=== PATIENT | male | born 1965 | race Caucasian/White ===

== ENCOUNTER 2020-04-27 02:08 | Outpatient (CLI) | payer OTHER, SELFPAY ==
[2020-04-27 18:09] LABS: SARS-CoV-2 RNA PCR Negative
== END 2020-04-27 02:09 | disposition home or self-care (01) ==
LOC: ANHCOVIDDT 02:08
PROVIDERS: Visit Provider Surgery
DX: Z01.818 Encounter for other preprocedural examination (principal); Z11.59 Encounter for screening for other viral diseases
CPT/HCPCS: 87635; C9803; U0003

== ENCOUNTER 2020-04-30 02:19 | Day surgery (SDC) | payer OTHER, SELFPAY ==
[2020-04-23 14:09] VITALS: BMI 23.8
[2020-04-30 07:55] VITALS: BMI 23.3
[2020-04-30] MEDS: LACTATED RINGERS 1,000 ML 150 ML IV CONT (08:07)
[2020-04-30 08:08] VITALS: BP 126/92; PULSE 77; RESP 16; TEMP 36.3; O2SAT 100
--- NOTE | 2020-04-30 08:43 | WPDANESEPPF ---
Anes - Initial Pre Proc Eval Procedure: Operation Date: 04/30/20 09:15 Proposed Procedures p Screening Colonoscopy - Yassine Urbina DO Date/Time: 04/30/20 08:43 Surgeon: Yassine Urbina DO Pre Op Diagnosis: Neoplasm Sreening Patient Data Age: 54 Gender: M Height: 6 ft 1 in Weight: 80.3 kg Last Vital Signs Temp 36.3 C L 04/30/20 08:08 Pulse 77 04/30/20 08:08 Resp 16 04/30/20 08:08 BP 126/92 H 04/30/20 08:08 Pulse Ox 100 04/30/20 08:08 Allergies Allergy/AdvReac Type Severity Reaction Status Date / Time No Known Allergies Allergy Verified 04/30/20 07:54 Home Medications Medication Instructions Recorded Confirmed Type No Home Medications 04/23/20 04/30/20 History Patient hx anesthesia problems: none Family hx anesthesia problems: none PMFSH Family History Family History Father Hypertension Sibling Hypertension Family history of malignant melanoma Other Family history of allergic disorder Family history of malignant neoplasm Social History Social History Smoking status: Never smoker Alcohol intake: current Anes - Eval Final PreProcedure Day of Procedure 04/30/20 08:43 Patient weight: normal Heart: regular rate and rhythm Lungs: clear to auscultation Airway: Mallampati scale class 1 Neurological: alert and oriented Last oral intake: >/= 8 hours ASA classification: I Emergent: no Anesthetic plan: proceed Anesthesia type and monitoring: general GIVS and standard monitoring Informed Consent: The patient's anesthetic plan and its attendant risks and benefits were discussed with the patient/family/POA. Questions were solicited and answers provided to the satisfaction of the patient/family/POA.
--- NOTE | 2020-04-30 08:52 | PM.IMHP ---
H&P: HPI History of Present Illness Chief complaint: Neoplasm Sreening Narrative: Tayo Bee is a 54 year old male who presents for screening colonoscopy. No fam hx of colon cancer. No hematochezia or melena. He doesn't have a PCP. Review of Systems Review of Systems: All systems reviewed & are unremarkable except as noted in HPI and below Constitutional: Constitutional: Denies chills, Denies fever(s), Denies headache(s) and Denies weight loss Eyes: Eyes: Denies change in vision ENT: Denies dizziness, Denies headache(s), Denies neck mass and Denies throat swelling Cardiovascular: Cardiovascular: Denies chest pain, Denies lightheadedness and Denies dyspnea Respiratory: Respiratory: Denies cough, Denies dyspnea and Denies wheezing Gastrointestinal: Gastrointestinal: Denies abdominal pain, Denies change in bowel habits, Denies nausea and Denies vomiting Genitourinary: Genitourinary: Denies hematuria and Denies dysuria Musculoskeletal: Musculoskeletal: Reports as per HPI Integumentary/Breasts: Skin/Breast: Reports as per HPI Neurologic: Denies dizziness and Denies headache(s) Allergic/Immunologic: Allergic/Immunologic: Denies throat swelling and Denies wheezing PMFSH Family History Family History Father Hypertension Sibling Hypertension Family history of malignant melanoma Other Family history of allergic disorder Family history of malignant neoplasm Social History Social History Smoking status: Never smoker Alcohol intake: current Meds Home Medications and Allergies Home Medications Medication Instructions Recorded Confirmed Type No Home Medications 04/23/20 04/30/20 History Allergies Allergy/AdvReac Type Severity Reaction Status Date / Time No Known Allergies Allergy Verified 04/30/20 07:54 Vital Signs Vital Signs - 24 hr 04/30/20 08:08 Temperature 36.3 C L Pulse Rate 77 Respiratory Rate 16 Blood Pressure 126/92 H Pulse Oximetry 100 Exam Const: General: no acute distress and alert Orientation/consciousness: patient oriented x3 HENMT: Head: normocephalic and atraumatic Ears: hearing grossly normal bilaterally General nose exam: Normal nares present Mouth: Yes Normal oral and palatal mucosa present Eyes: Periorbital: periorbital findings normal Sclera: sclerae normal EOM: EOMs intact bilaterally Neck: Neck: normal visual inspection, no lymphadenopathy and trachea midline Chest: Chest palpation & inspection: normal inspection of the chest Resp: Effort & Inspection: normal respiratory effort Auscultation: clear to auscultation bilaterally Cardio: Jugular venous distension: no JVD Rate: regular rate Rhythm: regular rhythm Heart sounds: S1 normal heart sound present and S2 normal heart sound present Peripheral pulses: Peripheral pulses 2+ throughout GI: Inspection: normal to inspection GI Palp: Yes Soft to palpation, No Tenderness to palpation present (GI), No Guarding due to palpation present (GI) and No Rebound tenderness present Percussion: Yes normal to percussion Auscultation: normal bowel sounds : General: Yes no CVA tenderness Back/Spine/Pelvis: Back: no CVA tenderness Neuro: General: patient oriented x3, no focal motor deficits and CN's II-XI intact bilaterally Cognition (Neuro): normal cognition Speech: normal speech Motor exam (neuro): 5/5 motor strength present throughout Extrem: General: capillary refill normal and no clubbing, cyanosis or edema Assessment and Plan Assessment and plan (1) Screening for colorectal cancer: Code(s): Z12.11 - Encounter for screening for malignant neoplasm of colon; Z12.12 - Encounter for screening for malignant neoplasm of rectum Status: Acute Assessment and Plan: I have recommended colonoscopy. I have discussed the procedure, risks, benefits, and alternatives with the p
[2020-04-30 09:16] VITALS: BP 101/71; PULSE 64; RESP 16; O2SAT 100
[2020-04-30 09:26] VITALS: BP 107/74; PULSE 66; RESP 16; O2SAT 100
== END 2020-04-30 09:44 | disposition home or self-care (01) ==
PROVIDERS: Visit Provider Surgery
PROC: 0DJD8ZZ Inspection of Lower Intestinal Tract, Via Natural or Artificial Opening Endoscopic (ICD-10-PCS; CPT 45378; principal; 2020-04-30 09:15)
DX: Z12.11 Encounter for screening for malignant neoplasm of colon (principal); K62.1 Rectal polyp; K57.30 Diverticulosis of large intestine without perforation or abscess without bleeding
CPT/HCPCS: 45380; 88305; J2704; J7120

== ENCOUNTER 2022-12-29 19:01 | Emergency (ER) | payer OTHER, SELFPAY ==
[2022-12-29 19:12] VITALS: BP 135/68; PULSE 82; RESP 16; TEMP 36.1; O2SAT 98
[2022-12-29 19:17] VITALS: BP 135/68; PULSE 82; RESP 16; TEMP 36.1; O2SAT 98
--- NOTE | 2022-12-29 19:25 | ED.URI ---
HPI - URI/Sore Throat General Chief Complaint: Upper Respiratory Infection Stated Complaint: sinus congestion, cough, sore throat Source: patient and RN notes reviewed History of Present Illness HPI Narrative: 57-year-old male presents to urgent care with complaints of congestion x1 week as well as head pressure and sore throat. Patient states he went to [place] over the weekend his symptoms have worsened since. Denies any vomiting, chest pain, shortness of breath. Patient has been using [id number] cold medications without relief. Some parts of this dictation were generated by voice recognition software and may contain typographical and/or grammatical inaccuracies. Related Data Allergies Allergy/AdvReac Type Severity Reaction Status Date / Time No Known Allergies Allergy Verified 12/29/22 19:10 Review of Systems Review of Systems: CONSTITUTIONAL: Denies fever, chills, or sweats. EYES: Denies visual changes, redness, or discharge. ENT: Congestion and sore throat CARDIOVASCULAR: Denies chest pain, palpitations, or edema. RESPIRATORY: Denies cough or dyspnea. GASTROINTESTINAL: Denies abdominal pain, nausea, vomiting, or diarrhea. GENITOURINARY: Denies dysuria or hematuria. SKIN: Denies rash or itching. MUSCULOSKELETAL: Denies back pain, joint pain, or myalgia. NEUROLOGIC: Denies headache, numbness, or weakness. [facility] Family History Family History Father Hypertension Sibling Hypertension Family history of malignant melanoma Other Family history of allergic disorder Family history of malignant neoplasm Social History Social History Smoking status: Never smoker Alcohol intake: current Comments At the time of my signature, I reviewed and agree with the nursing past medical, surgical, social, and family history. There is no relevant family history pertinent to the patient complaint. Exam Narrative: GENERAL: This is a well-nourished, well-developed patient, in no apparent distress. HEAD: normocephalic, atraumatic. EYES: PERRL. Sclera clear/white. Vision is grossly intact. EARS: External ears normal, auditory canals clear and without drainage, TMs normal without perforation. Hearing grossly intact. NOSE: congestion THROAT: Mucous membranes moist, posterior pharynx erythemic. No exudate noted.. NECK: Neck supple, non-tender without lymphadenopathy, masses or thyromegaly. CARDIOVASCULAR: Regular rate RESPIRATORY: No Respiratory distress GASTROINTESTINAL: Abdomen soft, non-tender, nondistended. Bowel sounds are active. No hepato-splenomegaly, or palpable masses. No guarding. SKIN: warm, intact with no suspicious lesions or rash, good texture and turgor. NEURO: awake, alert, and oriented to person, place and time. There were no obvious focal neurologic abnormalities. Course Course Level of Care: Express Care Visit Vital Signs Vital signs: Vital Signs Temperature 97 F L 12/29/22 19:12 Pulse Rate 82 12/29/22 19:12 Respiratory Rate 16 12/29/22 19:12 Blood Pressure 135/68 12/29/22 19:12 Pulse Oximetry 98 12/29/22 19:12 Temperature 97 F L 12/29/22 19:17 Pulse Rate 82 12/29/22 19:17 Respiratory Rate 16 12/29/22 19:17 Blood Pressure 135/68 12/29/22 19:17 Pulse Oximetry 98 12/29/22 19:17 reviewed MDM - URI/Sore Throat MDM Narrative Medical decision making narrative: Return to urgent care or go to the ER for new or worsening symptoms. Avoid smoking/second-hand smoke. Continue to take Tylenol or Motrin for pain. Increase your Vitamin C intake. Use a humidifier or vaporizer at night. Take Medications as prescribed. Drink plenty of water. 8-10 glasses per day. Use flonase 2 times per day for 5 days then as needed Take mucinex 2 times per day and be sure to take with 8oz of water. Follow up with Primary provider if not getting better.
== END 2022-12-29 19:31 | disposition home or self-care (01) ==
PROVIDERS: Emergency Provider Nurse Practitioner Family
DX: J01.90 Acute sinusitis, unspecified (principal)
CPT/HCPCS: 99213; G0463

== ENCOUNTER 2023-10-29 09:56 | Outpatient (CLI) | payer OTHER, SELFPAY | END 2023-10-29 09:57 | disposition home or self-care (01) | LOC: ANHSURGERY 10:01 | PROVIDERS: Visit Provider Surgery | DX: Z01.818 Encounter for other preprocedural examination (principal); K40.90 Unilateral inguinal hernia, without obstruction or gangrene, not specified as recurrent | CPT/HCPCS: 36415; 86850; 86900; 86901 ==

== ENCOUNTER 2023-11-02 00:35 | Day surgery (SDC) | payer OTHER, SELFPAY ==
[2023-10-27 10:27] VITALS: BMI 24.4
--- NOTE | 2023-10-27 10:32 | PC.NURSE ---
Report to the Outpatient Waiting Room, entrance under the green pavilion located off [facility], at time 9:30 on date 11/02/23. Planned Procedure Time: 11:30. Time changes happen often and if your time is changed the preop area will call you the afternoon before. - You and your visitor will be asked to self-screen and do not enter if you have any COVID symptoms. - A mask is optional within the hospital at this time. Patients may have clear liquids (water, carbonated beverages, clear teas, apple juice) until 3 hours prior to surgery with a maximum of 20 ounces. - No food from midnight until time of surgery Take the following medications with a SIP of water the morning of surgery: N/A DO NOT STOP ANY OF YOUR OTHER PRESCRIPTION MEDICATIONS PRIOR TO SURGERY ?EXCEPT THE FOLLOWING Medications to discontinue per physician: N/A Date to take last dose: N/A Please no make-up, nail english, hairspray, perfume, deodorant, or body powder the day of surgery. No jewelry (including any body piercings) or valuables the day of surgery, leave them at home. Please take a shower or bath the night before, or the morning of, surgery with an antibacterial soap. Wear comfortable, loose fitting clothing. - Jewelry must be removed prior to entering the operating room. Rings and piercings that are not removed may be cut off. - The hospital will not accept responsibility for valuables. - Please leave all valuables, including medications, at home the day of surgery. If you are going home after surgery, a licensed bottom hoop driver must drive you home. - NO public transportation without another adult if you receive anesthesia. - We recommend that an adult stay with you for 24 hours following discharge. - We also recommend that you do not drive, make important decision, drink alcoholic beverages, or take any drugs that were not prescribed by your health care provider for at least 24 hours after your discharge time. Follow any additional instructions given to you from your surgeon. If you or anyone in your household have experienced Covid symptoms in the past week, please notify your surgeon or the nurse liaison at the phone number below for possible testing. Telephone instructions given to PT - JUDAH GRANT and asked if any additional questions and then verbalized understanding. Patient advised to call surgeon office or pre surgery nurse liaison [phone] if any additional questions.
[2023-11-02] VITALS (8 sets, daily range): BP systolic 116–151; BP diastolic 73–92; PULSE 52–87; RESP 15–20; TEMP 36.2–37.2; O2SAT 97–100
[2023-11-02] MEDS: ACETAMINOPHEN 500 MG TABLET 1000 MG PO (10:00)
[2023-11-02] MEDS: LACTATED RINGERS 1,000 ML 30 ML IV CONT ×2 (10:00→12:28)
[2023-11-02] MEDS: KETOROLAC 15 MG/ML VIAL (*BKC) IV PUSH (10:00)
--- NOTE | 2023-11-02 10:40 | WPDANESEPPF ---
Anes - Initial Pre Proc Eval Procedure: Operation Date: 11/02/23 11:30 Proposed Procedures p Laparoscopic Right Inguinal Hernia Repair Davinci Assisted with Mesh - Yassine Urbina DO Date/Time: 11/02/23 10:40 Surgeon: Yassine Urbina DO Pre Op Diagnosis: Right Inguinal Hernia Patient Data Age: 58 Gender: M Height: 1.85 m Weight: 83.8 kg Last Vital Signs Temp 99.0 F 11/02/23 10:00 Pulse 85 11/02/23 10:00 Resp 16 11/02/23 10:00 BP 151/92 H 11/02/23 10:00 Pulse Ox 99 11/02/23 10:00 O2 Del Method Room Air 11/02/23 10:00 Allergies Allergy/AdvReac Type Severity Reaction Status Date / Time No Known Allergies Allergy Verified 11/02/23 10:27 Home Medications Medication Instructions Recorded Confirmed Type No Home Medications 10/20/23 11/02/23 History Patient hx anesthesia problems: none Family hx anesthesia problems: none Results Review: All pre-operative results and documents have been reviewed as part of the pre-operative evaluation. 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 Informed Consent: The patient's anesthetic plan and its attendant risks and benefits were discussed with the patient/family/POA. Questions were solicited and answers provided to the satisfaction of the patient/family/POA.
--- NOTE | 2023-11-02 10:43 | WPDHPUPDATE1 ---
History and Physical Update Update Date/Time: 11/02/23 10:43 History and Physical has been reviewed, including an updated exam of the patient. There are NO changes in the patient's condition. Risks, benefits, and alternatives have been discussed and questions answered. Patient agrees to proceed with procedure.
--- NOTE | 2023-11-02 10:45 | WPDHPUPDATE1 ---
History and Physical Update Update Date/Time: 11/02/23 10:45 History and Physical has been reviewed, including an updated exam of the patient. There are NO changes in the patient's condition. Risks, benefits, and alternatives have been discussed and questions answered. Patient agrees to proceed with procedure.
[2023-11-02] MEDS: ceFAZolin 2 GM/D5W 50 ML 2 GM/50 ML BAG IVPB (11:02)
[2023-11-02] MEDS: BUPIVACAINE/EPINEPHRINE 0.5% 30 ML VIAL INFILTRATE (11:33)
--- NOTE | 2023-11-02 12:17 | W.PM.PROC2 ---
Procedure Note - Detailed Date of Procedure 11/02/23 Pre-op Diagnosis Right Inguinal Hernia Post-op Diagnosis Same Procedure Performed Laparoscopic right inguinal hernia repair with mesh, da Bren assisted Surgeon Yassine Urbina, Anesthesia General and Local (0.5% bupivacaine with epinephrine) Indications This is a 58-year-old man who has noticed a right groin bulge over the past year. He has some slight tenderness in this region when it is palpated, but denies any significant pain with this. He was found to have a reducible right inguinal hernia on physical exam. Discussions were made with the patient about treatment options and decision was made to proceed with robotic assisted laparoscopic right inguinal hernia repair with mesh. Findings Laparoscopic right inguinal hernia repair was performed. The patient was found to have an indirect right inguinal hernia. There did not appear to be any evidence of a left inguinal hernia. A robotic transabdominal preperitoneal approach was utilized for right inguinal hernia repair. Once a wide enough preperitoneal pocket was created, I then placed a large right 3DMax mid mesh overlying the entire right myopectineal orifice. No other abnormalities were noted. No specimens were obtained for pathology. Description of Procedure Procedure as well as risks, benefits, and alternatives were discussed with the patient. Written consent was obtained and placed in chart prior to procedure. Patient was brought back to surgical suite. He was placed supine on operating table. Time-out was done to confirm patient and procedure. He was then intubated by Anesthesia Department. His abdomen was prepped and draped in sterile fashion using chlorhexidine prep. 0.5% bupivacaine with epinephrine was infiltrated at each location for incision. An 8 mm incision was made in the left lateral abdomen, and a 5 mm Optiview trocar was advanced through the abdominal layers under direct visualization. Once inside the abdominal cavity, carbon dioxide insufflation was used to create a pneumoperitoneum. A camera was inserted and the abdominal cavity was inspected. The patient was placed in slight Trendelenburg position. An 8 millimeter incision was made on the right lateral abdomen and an 8 millimeter trocar was inserted under direct visualization. Another 8 millimeter incision was made just superior to the umbilicus and an 8 millimeter trocar was inserted under direct visualization. The 5 mm port was then removed and this was replaced with another 8 mm robotic port. The robotic arms were brought up to the patient's bedside and secured to the ports. The camera and instruments were inserted. I then moved over to the robotic console and took control of the camera and instruments. After careful inspection of the abdominal cavity, I began scoring the peritoneum along the right lower quadrant using scissors with electrocautery. The preperitoneal plane was entered and this was carefully dissected caudally along the inferior epigastric vessels. Careful dissection with scissors with electrocautery and blunt dissection was used to continue this dissection. I dissected far enough laterally to allow for mesh placement, and also dissected medially to identify the pubic arch and Dorian's ligament. The hernia sac was identified and carefully dissected posteriorly. The cord contents were also identified and the peritoneum was carefully dissected far enough posteriorly to allow for mesh placement. Once an adequate pocket was created, I then placed the mesh within the preperitoneal pocket and carefully unfolded it. The mesh was centered on the hernia defect with adequate overlap circumferentially. The inferior edge of the mesh was inspected to ensure that it was far enough away from the peritoneal edge. The mesh appeared in proper position overlying the entire myopectineal orifice. The mesh was secured using 3-0 Vicryl simple interrupted sutures in Coop
[2023-11-02] MEDS: oxyCODONE HCL (*CRX) 5 MG TAB IR PO (14:02)
== END 2023-11-02 14:40 | disposition home or self-care (01) ==
PROVIDERS: Visit Provider Surgery
PROC: 8E0Y4CZ Robotic Assisted Procedure of Lower Extremity, Percutaneous Endoscopic Approach (ICD-10-PCS; CPT 49650; principal; 2023-11-02 11:30)
DX: K40.90 Unilateral inguinal hernia, without obstruction or gangrene, not specified as recurrent (principal); F17.220 Nicotine dependence, chewing tobacco, uncomplicated; F12.90 Cannabis use, unspecified, uncomplicated
CPT/HCPCS: 49650; S2900; 36415; 86850; 86900; 86901; A9270; C1781; J0690; J1100; J1170; J1596; J1885; J2250; J2405; J2704; J2710; J3010; J7120